=== PATIENT | male | born 1995 | race Caucasian/White ===

== ENCOUNTER 2019-11-24 22:22 | Emergency (ER) | payer OTHER ==
[2019-11-24 22:38] VITALS: BMI 39.4
[2019-11-24 22:39] VITALS: TEMP 98
--- NOTE | 2019-11-24 22:43 | PDOC ---
History of Present Illness - General Chief Complaint: Syncope/Near Syncope Stated Complaint: COUGH/UNCONSCIOUS Time Seen by Provider: 11/24/19 22:43 History Source: Patient Exam Limitations: No Limitations - History of Present Illness Initial Comments: 11/24/19 23:02 24y previously healthy M presenting w syncope. At 10pm today, had coughing episode then facial cyanosis and witnessed syncope w LOC and extremity shaking for 20s. AOx3, asking what happened few seconds after waking up from syncope. Denies head trauma, tongue biting, urinary incontinence, not on anticoagulants. Endorses 4d fever, R sided headache, nasal congestion, yellow productive cough. Denies nausea/vomiting, chest pain, SOB, ABD pain, numbness/weakness. Past History - Past Medical History Allergies/Adverse Reactions: Allergies Allergy/AdvReac Type Severity Reaction Status Date / Time No Known Allergies Allergy Verified 11/24/19 22:38 Home Medications: Ambulatory Orders Cephalexin [Keflex] 500 mg PO Q6H #28 capsule 05/17/15 Sulfamethoxazole/Trimethoprim [Bactrim Ds -] 1 tab PO BID #14 tablet 05/17/15 - Psycho Social/Smoking Cessation Hx Smoking Status: No Smoking History: Never smoked Number of Cigarettes Smoked Daily: 0 Hx Alcohol Use: No Drug/Substance Use Hx: No Substance Use Type: None Review of Systems - Review of Systems Constitutional: Yes: Fever. No: Chills HEENTM: Yes: Nose Congestion. No: Eye Pain, Recent change in vision Respiratory: Yes: Cough. No: Shortness of Breath Cardiac (ROS): Yes: Syncope. No: Chest Pain, Palpitations ABD/GI: No: Abdominal Distended, Constipated, Diarrhea, Nausea, Vomiting : No: Burning, Dysuria Musculoskeletal: No: Back Pain, Joint Pain Integumentary: No: Bruising, Flushing Neurological: Yes: Headache. No: Seizure Psychiatric: No: Anxiety, Depression Endocrine: No: Intolerance to Cold, Intolerance to Heat Hematologic/Lymphatic: No: Anemia, Blood Clots *Physical Exam - Vital Signs Last Vital Signs Temp Pulse Resp BP Pulse Ox 98.0 F 78 20 156/92 98 11/24/19 22:33 11/24/19 22:33 11/24/19 22:33 11/24/19 22:33 11/24/19 22:33 - Physical Exam General Appearance: Yes: Nourished, Appropriately Dressed. No: Apparent Distress HEENT: positive: EOMI, SANDRA, Normal Voice, Nasal Congestion, Hearing Grossly Normal. negative: Scleral Icterus (R), Scleral Icterus (L) Respiratory/Chest: positive: Lungs Clear, Normal Breath Sounds. negative: Chest Tender, Respiratory Distress, Crackles, Rales, Rhonchi, Stridor, Wheezing Cardiovascular: positive: Regular Rhythm, Regular Rate, S1, S2. negative: Edema , Murmur Gastrointestinal/Abdominal: positive: Normal Bowel Sounds, Flat, Soft. negative : Tender, Organomegaly Extremity: positive: Normal Capillary Refill Integumentary: positive: Normal Color. 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 negative: Facial Droop, Numbness, Sensory Deficit, Confused, Disoriented ED Treatment Course - LABORATORY CBC & Chemistry Diagram: 11/24/19 23:15 11/24/19 23:15 Medical Decision Making - Medical Decision Making 11/24/19 23:06 EKG - NSR, HR 73, QTc 434, no ST changes CXR - clear lung valentin, normal cardiac size --- 24y previously healthy M presenting w syncope after coughing episode. Hypoxic vs vasovagal syncope. Low concern for orthostatic (not dehydrated) vs cardiogenic (no cardiac risk factors, neg trop, no ST changes) vs CVA (no neuro exam deficits) vs seizure (no post ictal period) vs flu (neg). Has viral URI ( congestion, cough) and elevated LFTs (44 AST, 120 ALT) and minimal rhabdo CK 383 Given tylenol DC home w PCP for elevated LFTs and neuro f/u Discharge - Discharge Information Problems reviewed: Yes Clinical Impression/Diagnosis: Transaminitis Syncope Qualifiers: Syncope type: vasovagal syncope Qualified Code(s): R55 - Syncope and collapse URI (upper respiratory infection) Qualifiers: URI type: unspecified viral URI Qualified Code(s): J06.9 - Acute upper respiratory infection, unspecified Condition: Good Disposition: HOME - Follow up/Referral Referrals: Vini Deleon MD [Staff Physician] - - Patient Discharge Instructions Patient Printed Discharge Instructions: DI for Syncope in Adults (Fainting) Additional Instructions: Follow up with your primary care doctor about your elevated liver enzymes Follow up with the referred neurologist about your syncope Drink lots of water - Post Discharge Activity
[2019-11-24] MEDS ORDERED: ACETAMINOPHEN 500 MG TABLET (FP) PO ONE (23:05)
--- NOTE | 2019-11-24 23:14 | PDOC ---
Documentation entered by Minerva Araujo SCRIBE, acting as scribe for Delfina Bearden MD. Delfina Bearden MD: This documentation has been prepared by the scribe, Minerva Araujo SCRIBE, under my direction and personally reviewed by me in its entirety. I confirm that the documentation accurately reflects all work, treatment, procedures, and medical decision making performed by me. Attending Attestation - Resident Resident Name: Ghassan Blanco - ED Attending Attestation I have performed the following: I have examined & evaluated the patient, The case was reviewed & discussed with the resident, I agree w/resident's findings & plan, Exceptions are as noted - HPI HPI: 11/24/19 23:17 The patient is a 24-year-old male with no significant past medical history who presents to the emergency department s/p a syncopal episode. Around 10:00 pm today, the patient had a coughing fit, following the patient lost consciousness for about either 5-20 seconds. Denies tongue biting, urinary incontinence. The patient reports a four day history of URI symptoms, reports sick contact with son who was sick. Denies nausea or vomiting. - Physicial Exam PE: 11/24/19 23:16 GENERAL: The patient is a 24-year-old obese male. Well-appearing, well-nourished. No apparent distress. HEENT: +nasal congestion, 4-day history of URI symptoms. oropharynx: erythema, without exudate, uvula midline. Normocephalic, atraumatic. PERRL, EOM intact. CARDIOVASCULAR: Normal S1, S2. Regular rate and rhythm. PULMONARY: Clear to auscultation bilaterally. ABDOMEN: protuberant Soft, non-tender. EXTREMITIES: No edema. Normal ROM in all four extremities. No gross deformities. SKIN: Warm, dry. No rash NEUROLOGICAL: Alert and oriented x3. No focal neurological deficits. - Medical Decision Making 11/24/19 23:54 Past medical history none Past surgical history none He does have a sick contact: Son has URI symptoms 11/25/19 00:34 Chest x-ray has no acute pulmonary disease, no pneumothorax, no effusions, normal mediastinum CBC unremarkable Chemistries show glucose equal to 116 and mild elevation of LFTs pt NEVER had any chest pain,confusion,headache,numbness of extremities , shortness of breath imp probably vasovagel episode following coughing
[2019-11-24 23:26] LABS: BASO % 0.9 % (0-2.0); EOS % 3.4 % (0-4.5); HEMATOCRIT 45.1 % (35.4-49); HEMOGLOBIN 15.3 GM/dL (11.7-16.9); LYMPH % 32.2 % (8-40); MCH 29.7 pg (25.7-33.7); MEAN CELL VOLUME 87.6 fl (80-96); MEAN PLT VOLUME 8.8 fl (7.5-11.1); MONO % 8.4 % (3.8-10.2); NEUT % 55.1 % (42.8-82.8); PLATELET COUNT 203 K/MM3 (134-434); RBC 5.14 M/mm3 (4.00-5.60); WHITE BLOOD COUNT 6.9 K/mm3 (4.0-10.0)
[2019-11-25 00:07] LABS: ALBUMIN 3.7 g/dl (3.4-5.0); BILIRUBIN,TOTAL 0.4 mg/dL (0.2-1); BLOOD UREA NITROGEN 11.7 mg/dL (7-18); CALCIUM 8.6 mg/dL (8.5-10.1); CREATININE 1.2 mg/dL (0.55-1.3); POTASSIUM 3.5 mmol/L (3.5-5.1); TOT PROT 7.4 g/dl (6.4-8.2)
[2019-11-25 00:44] VITALS: BP 143/84; PULSE 64
--- NOTE | 2019-11-25 09:58 | EKG ---
Test Reason : Blood Pressure : / mmHG Vent. Rate : 073 BPM Atrial Rate : 073 BPM P-R Int : 176 ms QRS Dur : 120 ms QT Int : 394 ms P-R-T Axes : 030 -11 025 degrees QTc Int : 434 ms NORMAL SINUS RHYTHM NON-SPECIFIC INTRA-VENTRICULAR CONDUCTION DELAY BORDERLINE ECG WHEN COMPARED WITH ECG OF 17-MAY-2015 13:30, QRS DURATION HAS INCREASED Confirmed by Dann Aviles ([id number]) on 11/25/2019 9:57:59 AM Referred By: Confirmed By:Dann Aviles
== END 2019-11-25 00:46 | disposition home or self-care (01) ==
LOC: JER 22:22
DX: R55 Syncope and collapse (principal); J06.9 Acute upper respiratory infection, unspecified; B97.89 Other viral agents as the cause of diseases classified elsewhere; R74.0 Nonspecific elevation of levels of transaminase and lactic acid dehydrogenase [LDH]
CPT/HCPCS: 36415; 71046-TC-FY; 80053; 82550; 82553; 84484; 85025; 87804; 93005; 93010; 99285-25